=== PATIENT | female | born 1950 | race Caucasian/White ===

== ENCOUNTER 2018-11-28 13:59 | Day surgery (SDC) | payer MEDICARE, BC ==
[~2018-11-28] VITALS: Ht 162.6 cm; Wt 66.4 kg
[~2018-11-28 13:59] MED LIST: BENA40TA54 PO; GLIP10TA14 PO; MTF1000T PO; ZOC10 PO
[2018-11-28] MEDS ORDERED: VITAMIN D3 (15:00)
[2018-11-28] MEDS ORDERED: JANUVIA (15:00)
[2018-11-28] MEDS ORDERED: ASPIRIN (15:00)
[2018-11-28] MEDS ORDERED: INSULIN LANTUS (15:00)
[2018-11-28 15:17] VITALS: BP 152/73; PULSE 78; RESP 14
[2018-11-28] MEDS ORDERED: LIDOCAINE 4% SOLUTION 50 ML BTL ONE (15:22)
[2018-11-28 16:03] VITALS: BP 131/72; PULSE 64; RESP 17
[2018-11-28] MEDS ORDERED: MIDAZOLAM 1 MG/ML 2 ML INJ ONE (16:07)
[2018-11-28] MEDS ORDERED: FENTAnyl 50 MCG/ML VIAL ONE (16:07)
== END 2018-11-28 16:47 | disposition home or self-care (01) ==
LOC: GIL 13:59
PROVIDERS: ATTEND Internal Medicine
DX: K20.9 Esophagitis, unspecified (principal); I10 Essential (primary) hypertension; E11.9 Type 2 diabetes mellitus without complications
CPT/HCPCS: 43239; 82962; J2250; J3010; 88305; 88312; 88313

== ENCOUNTER 2019-02-27 12:06 | Day surgery (SDC) | payer MEDICARE, BC ==
[~2019-02-27] VITALS: Ht 160 cm; Wt 63.6 kg
[~2019-02-27 12:06] MED LIST changes: +ASPIRIN; -GLIP10TA14 PO; +INSULIN LANTUS; +JANUVIA; +VITAMIN D3; -ZOC10 PO
[2019-02-27 12:52] VITALS: Ht 160 cm; Wt 63.6 kg
[2019-02-27] MEDS ORDERED: LANT3I SC (12:59)
[2019-02-27] MEDS ORDERED: BENA40TA56 PO (12:59)
[2019-02-27] MEDS ORDERED: ASPI-903 PO (12:59)
[2019-02-27] MEDS ORDERED: RANI150T5 PO (12:59)
[2019-02-27] MEDS ORDERED: SITA100T11 PO (12:59)
[2019-02-27 13:00] VITALS: BP 172/74; PULSE 65; RESP 18
[2019-02-27 13:52] VITALS: BP 132/80; PULSE 64; RESP 18
[2019-02-27] MEDS ORDERED: FENTAnyl 50 MCG/ML VIAL ONE (15:28)
[2019-02-27] MEDS ORDERED: MIDAZOLAM 1 MG/ML 2 ML INJ ONE ×2 (15:29)
== END 2019-02-27 15:45 | disposition home or self-care (01) ==
LOC: GIL 12:06
PROVIDERS: ATTEND Internal Medicine
DX: Z12.11 Encounter for screening for malignant neoplasm of colon (principal); K57.30 Diverticulosis of large intestine without perforation or abscess without bleeding; I10 Essential (primary) hypertension; E11.9 Type 2 diabetes mellitus without complications; Z79.82 Long term (current) use of aspirin; Z79.84 Long term (current) use of oral hypoglycemic drugs
CPT/HCPCS: 45378; 82962; J2250; J3010